=== PATIENT | female | born 1960 | race Hispanic/Latino ===

== ENCOUNTER 2017-12-16 06:01 | Day surgery (SDC) | payer BC ==
[2017-11-29 07:53] VITALS: BMI 26.9
[2017-12-16] MEDS ORDERED: Lidocaine 1% Inj (20ml) ONE (07:28)
[2017-12-16] MEDS ORDERED: Bupivacaine 0.5% Inj(30mL) ONE (07:28)
[2017-12-16] MEDS ORDERED: Morphine 2 mg/ml ISec IVP PRN (07:32)
[2017-12-16] MEDS ORDERED: Propofol 10 mg/ml Inj (20 ML) ONE (07:42)
[2017-12-16] MEDS ORDERED: Midazolam 2 MG/2 ML VIAL ONE (07:43)
[2017-12-16] MEDS ORDERED: Lactated Ringer's 1,000 ML IV SCH (07:45)
[2017-12-16] MEDS ORDERED: Lidocaine 1% Inj (20ml) INFIL ONE (08:04)
[2017-12-16] MEDS ORDERED: Bupivacaine 0.5% Inj(30mL) INFIL ONE (08:04)
[2017-12-16] MEDS ORDERED: Liquid Adhesive TOP ONE (08:50)
[2017-12-16] MEDS ORDERED: Dexamethasone 4 mg/1 ml ONE (08:51)
--- NOTE | 2017-12-16 09:08 | PCM.SURG1 ---
Surgeon's Initial Post Op Note - Surgeon's Notes Surgeon: Dr. Blane Gómez, DPM Head Gauge Unit Operator: Dr. Juan David Wray PGY2 Type of Anesthesia: IV Sedation, Local Anesthesia Administered By: Dr. Osei Pre-Operative Diagnosis: Painful hammertoe, left second digit Operative Findings: See dictation report. M- Synthes Hammerlock implant, 3-0 vicryl, 5-0 monocryl. I- 7 cc 1:1 1% lidocaine plain, 0.5% marcaine plain, 4mg dexamethasone Post-Operative Diagnosis: Same Operation Performed: Surgical intervention of left foot second digit hammertoe with Synthes Hammerlock implant Specimen/Specimens Removed: Bone and soft tissue, left second digit Estimated Blood Loss: EBL {In ML}: 1 Blood Products Given: N/A Drains Used: No Drains Post-Op Condition: Good Date of Surgery/Procedure: 12/16/17 Time of Surgery/Procedure: 09:07
[2017-12-16 09:53] VITALS: RESP 18
--- NOTE | 2017-12-16 10:36 | RAD ---
Date of service: 12/16/2017 PROCEDURE: Left Foot Radiographs. HISTORY: s/p left foot second digit hammertoe sx COMPARISON: None. FINDINGS: BONES: Normal. No fracture. JOINTS: There is hardware in the 2nd PIP joint. There is normal alignment SOFT TISSUES: Normal. OTHER FINDINGS: None. IMPRESSION: There is hardware in the 2nd PIP joint. There is normal alignment
--- NOTE | 2017-12-16 10:40 | RAD ---
Date of service: 12/16/2017 PROCEDURE: Fluoroscopy up to 1 hour HISTORY: ARTHROPLASTY LT 2ND TOE COMPARISON: TECHNIQUE: 3.6 seconds of fluoro time. 0.1 mGy cumulative dose. One image was submitted FINDINGS: The study shows arthroplasty of the 2nd left toe. IMPRESSION: As above
[2017-12-16 10:53] VITALS: BP 132/67; PULSE 58; TEMP 97.4; O2SAT 99
--- NOTE | 2017-12-17 08:35 | OP ---
Copied To: Juan David Wray DPM Attending MD: Blane Gómez DPM PROCEDURE DATE: 12/16/2017 SURGEON: Blane Gómez DPM PUPPET MAKER: Juan David Wray DPM, PGY-2 ANESTHESIOLOGIST: Dr. Osei. ANESTHESIA: IV sedation with local. PREOPERATIVE DIAGNOSIS: Painful hammertoe, left second digit. POSTOPERATIVE DIAGNOSIS: Painful hammertoe, left second digit. NAME OF PROCEDURE: Surgical intervention of the left foot second digit hammertoe with Synthes Hammerlock implant. INDICATIONS: The patient is a 56-year-old female with the above diagnosis. The patient has exhausted all conservative treatment options at this time and now requires surgical intervention. The patient signed the consent after careful explanation of risks, benefits, complications, and alternatives of the surgical procedure. No guarantees were given nor implied. N.p.o. status was confirmed prior to taking the patient to the operating room. PREPARATION: The patient was brought into the operating room and placed on the operating room table in a supine position. A time-out was performed for identification of the correct patient and procedure. After induction of IV sedation, the patient received a total of 7 mL of 1:1 mixture of 1% lidocaine plain and 0.5% Marcaine plain in a local block fashion at the base of the left second digit. The left lower extremity was then prepped and draped in a normal sterile manner and the procedure began. An ankle tourniquet was used for the entirety of the procedure at a pressure setting of 225 mmHg. DESCRIPTION OF PROCEDURE: Surgical intervention of the left foot second digit hammertoe with Synthes Hammerlock implant. Attention was then turned to the left foot second digit where an elliptical dorsal incision was made to the level of subcutaneous tissue using a fresh #15 blade. At this time, the extensor tendon was identified and a transverse tenotomy was made across the tendon. The tendon was then reflected both distally and proximally thereby revealing the proximal intraphalangeal joint where all soft tissue and collateral ligamentous structures were sharply debrided using a #15 blade, thereby freeing up the joint. At this time, a sagittal saw was utilized and a dorsal to plantar cut was made with the sagittal saw, removing the cartilaginous cap of the distal aspect of the second proximal phalanx. Using a rongeur, the cartilage of the base of the second middle phalanx was also excised from the field. All bone and soft tissue excised at this point were then sent to pathology for pathological examination. Attention was then turned to the arthroplasty site, where the medullary canals of both the proximal and middle phalanx were reamed out using a Synthes Hammerlock implant reamer. The reaming sites were then measured using the Hammerlock measurement device, and an appropriately sized Synthes Hammerlock hammertoe implant was inserted into the proximal intraphalangeal joint in the standard manner. The site was then flushed with copious amounts of normal sterile saline. The long extensor tendon was re-approximated using 3-0 Vicryl suturing. The subcutaneous tissue was reapproximated using 3-0 Vicryl suture, and the superficial skin was reapproximated and well coapted using a running non-locking suture technique with 5-0 Monocryl suture. Prior to closure, an intraoperative x-ray was taken, at which time, it was found that the implant was in proper position and anatomical alignment was both improved and appropriate. Following closure, the surgical site was dressed with Steri-Strips, Betadine-soaked Adaptic, Betadine-soaked gauze, Kerlix and ROCK. POSTOPERATIVE CONDITION: The patient tolerated the anesthesia and procedure well, and was escorted to the recovery room with vital signs stable and neurovascular status intact to the left lower extremity. The patient is to remain nonweightbearing as tolerated to the left lower extremity in a surgical shoe, and will follow up at Dr. Gómez's office within one week's time. Juan David Wray DPM Blane Gómez DPM TAMARA
== END 2017-12-16 11:05 | disposition home or self-care (01) ==
LOC: SDS 06:01
PROVIDERS: ATTEND Podiatrist
DX: M20.42 Other hammer toe(s) (acquired), left foot (principal)
CPT/HCPCS: 28285; 73630; 88304; J1100; J2001; J2250; J2270; J2405; J2704; J3010; J7120 ×2